=== PATIENT | female | born 1980 | race Caucasian/White ===

== ENCOUNTER 2024-01-02 09:03 | Outpatient (AMB) | payer OTHER, SELFPAY ==
--- NOTE | 2024-01-02 09:22 | A.OFFPC_ITS ---
Vital Signs 01/02/24 09:23 Height 6 ft Weight 174 lb 8 oz BMI 23.7 BP 93/50 L Blood Pressure Location Lt brachial Position Sitting Respiration 14 Pulse 66 Pulse Source Pulse Oximeter Temp 97.6 F Temp Source Temporal Artery Scan Pulse Oximetry (%) 99 Oxygen Delivery Method Room Air Intake Visit Reasons: est care Intake Note: Patient states that she started hormone treatment with transdermal patch for perimenopause and would like to try alternative due to patched leaving eczema wherever she places it. Tack Welder Required: No Accompanied by: Self / Same As Patient Allergies Seasonal Allergies Allergy (Intermediate, Verified 01/02/24 09:48) Itchy Eyes Penicillins Adverse Reaction (Severe, Verified 01/02/24 09:48) Anaphylaxis Medication List - Last Reconciled 01/02/24 by ELENO Church-BC estradiol (Evonne) 1 patch transdermal 2XW progesterone micronized 200 mg orally; for 12 days before expected period Tobacco use date assessed: 01/02/24 Dental Screening Dental Screen Date: 01/02/24 Did you have a dental visit in the last 12 months?: Yes Did you have a dental problem in the last 6 months where you did not have access to dental care?: No HPI HPI Comments History of Present Illness Details Becs 43-year-old female with perimenopause, e xercised induced asthma , seasonal allergies, PVCs, migraine headaches, generalized anxiety disorder, HPV s/p wisdom teeth extraction 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 brain aneurysm, Alzheimer MGF: age 95, OA PGM: age 92, anxious PGF: unknown Denies significant family hx in first degree relatives. Siblings - older full brother alive and well, younger half brother (paternal) alive and well Children - none Health Maintenance: Mammo 09/2023 reports WNL at [facility] Pap about 6 years ago. Tdap - will get today. 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 Sx include:insomnia, mood changes, anxious, brain fog, memory, exgreme fatigue, acne, hairloss All sx have improved w her current treatment PFSH Medical History (Updated 01/02/24 @ 10:41 by Ivette Land, ELENO-) Hypermobility of joint Anxiety Hives HPV (human papilloma virus) infection Migraines Exercise-induced asthma Surgical History (Updated 01/02/24 @ 09:40 by Amanda Beebe, [facility]) H/O oral surgery Family History (Updated 01/02/24 @ 10:34 by Henna Bedoya CMA) Mother Hypothyroid Asthma Father Tonsil cancer Maternal Grandmother High blood pressure Family/Other Asthma Brother No problems noted. Sister No problems noted. Maternal Grandmother No problems noted. 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 1. Little interest or pleasure in doing things: several days 2. Feeling down, depressed, or hopeless: several days 3. Trouble falling or staying asleep, or sleeping too much: several days 4. Feeling tired or having little energy: several days 5. Poor appetite or overeating: not at all 6. Feeling bad about yourself - or that you are a failure or have let yourself or your family down: not at all 7. Trouble concentrating on things, such as reading the newspaper or watching television: several days 8. Moving or speaking so slowly that other people could have noticed. Or the opposite - being so fidgety or restless that you have been moving around a lot more than usual: not at all 9. Thoughts that you would be better off or of hurting yourself in some way: not at all Total score: 5 Depression Screening Interpretation: Negative Depression Screening Done: Yes 50759 - PHQ-9 Billing: Yes Source: Developed by Drs. Salazar Davis, Saritha B.W. Jamin Lynch and colleagues, with an educational sherlyn from [employer]. Thrive Questionnaire Date Thrive assessed: 01/02/24 I am a: Patient What is your living situation today?: I have a steady place to live Within the past 12 months, did the food you bought not last and you didn't have the money to get more?: Never true Within the past 12 months, did you worry whether your food would run out before you got money to buy more?: Never true Do you have trouble paying for medicines?: No Do you have trouble getting transportation to medical appointments?: No Do you have trouble paying your heating and electricity bill?: No Do you have trouble taking care of your child, family member or friend?: No Do you have trouble with day-to-day activities such as bathing, preparing meals, shopping, managing finances, etc.?: No Are you currently unemployed and looking for a job?: No Are you interested in more education?: No Please select the resources that you would like help with: None Currently or been in a relationship where the following occur: no concerns reported THRIVE Score: 0 AUDIT C Alcohol Use Questionnaire (AUDIT-C) 1. How often do you have a drink containing alcohol?: Monthly or less 2. How many drinks containing alcohol do you have on a typical day when you are drinking?: 1 or 2 3. How often do you have six or more drinks on one occasion?: Never Total Score: 1 Score Reviewed/Action Taken: Yes ANGELINE-7 AMB Questionnaire ANGELINE-7 Date ANGELINE - 7 assessed: 01/02/24 Feeling nervous, anxious, or on edge: 2 = More than half the days Not being able to stop or control worryin = Several days Worrying too much about different things: 1 = Several days Trouble relaxin = More than half the days Being so restless that it is hard to sit still: 0 = Not at all Becoming easily annoyed or irritable: 1 = Several days Feeling afraid as if something awful might happen: 2 = More than half the days Total ANGELINE-7 score (0-4 normal; 5-9 mild; 10-14 moderate; 15-21 severe): 9 Source: Developed by Drs. Salazar Davis, Jamin Choudhary and colleagues, with an educational sherlyn from [employer]. ANGELINE-7 Assessment Billing ANGELINE-7 Assessment Tool: ANGELINE-7 Assessment 78618 ACT Questionnaire In the past 4 weeks, how much of the time did your asthma keep you from getting as much done at work, school or at home?: None of the time During the past 4 weeks, how often have you had shortness of breath?: Not at all During the past 4 weeks, how often did your asthma symptoms wake you up at night or earlier than usual in the morning?: Not at all During the past 4 weeks, how often have you had to use your rescue inhaler or nebulizer medication?: Not at all How would you rate your asthma control during the past 4 weeks?: Completely controlled ACT Interpretation: Negative Score: 25 Review of Systems Const Details: CONSTITUTIONAL: DENIES FEVER. SKIN: DENIES RASH. EYE: DENIES EYE PAIN. ENMT: DENIES SORE THROAT AND NASAL CONGESTION. RESPIRATORY: DENIES SHORTNESS OF BREATH AND COUGH. GASTROINTESTINAL: DENIES NAUSEA, VOMITING OR ABDOMINAL PAIN. CARDIOVASCULAR: DENIES CHEST PAIN AND SYNCOPE. GENITOURINARY: DENIES DYSURIA. MUSCULOSKELETAL: DENIES BACK PAIN AND EXTREMITY PAIN. NEUROLOGIC: DENIES HEADACHES, CONFUSION, AND WEAKNESS. PSYCHIATRIC: DENIES SUICIDAL THOUGHTS AND SUBSTANCE ABUSE. ALLERGY/ IMMUNOLOGIC: DENIES IMPAIRED IMMUNITY. Physical exam (Primary Care) Vital Signs: Last Vital Signs Temp 97.6 F 01/02/24 09:23 Pulse 66 01/02/24 09:23 Resp 14 01/02/24 09:23 BP 93/50 L 01/02/24 09:23 Pulse Ox 99 01/02/24 09:23 Oxygen Delivery Method Room Air 01/02/24 09:23 BMI result Body Mass Index 23.7 Tobacco/Smoking Status: Tobacco use Status Tobacco use date assessed 01/02/24 01/02/24 09:44 Patient Tobacco Use Status Former Tobacco user 01/02/24 09:44 e-Cigarette/Vaping Use Never Used 01/02/24 09:44 PHQ-9: PHQ-9 Score PHQ-9: Total score 5 01/02/24 09:44 Depression Screening Interpretation: Negative Thrive Assessment: Date of Thrive Assessment Date Thrive assessed 01/02/24 01/02/24 09:44 Currently or been in a relationship where the following occur: no concerns reported Const Other: General: Well developed, well nourished, in no acute distress. Appears stated age. Head: Normocephalic, atraumatic. Eyes: Pupils are equal, round and reactive to light and accommodation. Conjunctivae are clear. Vision grossly normal. Ears: TMs clear AU, EACS WNL Nose: Patent, without discharge. Mouth: There are no ulcers or lesions noted. No inflammation, no post nasal drip, no plaques nor exudates. Neck: Supple, no adenopathy or thyromegaly. Lungs: Clear to auscultation bilaterally. No rales, rhonchi or wheeze noted. Good air flow in all roach. Heart: Regular rate, frequent PVCs noted No murmurs, click, rubs or gallops are noted. Abdomen: Bowel sounds present in all quadrants. The abdomen is soft, nontender, with no masses or organomegaly noted. No hernias are noted. Musculoskeletal: Joints are nontender, without swelling, redness, or effusions. Range of motion is observed to be normal. Pulses: Peripheral pulses are equal and palpable bilaterally. Extremities: No clubbing, cyanosis nor edema is noted. Neurologic: Gait and station normal. Cranial Nerves 2-12 intact. Motor strength grossly symmetrical and intact. No sensory loss. Balance normal. Skin: No rashes, ulcers, or lesions noted. Turgor is good. Skin color is good. Hair and nails are without abnormalities. Psych: Normal eye contact, affect and mood appropriate, and normal interactions. Patient is alert and appropriate to context. Extremities: No clubbing, cyanosis or edema. Office Procedures EKG Details: SINUS ARRHYTHMIA W FREQUENT PVC 76848-[id number], Complete Assessment and Plan Assessment & Plan (1) Encounter for general adult medical examination with abnormal findings: Code(s): Z00.01 - Encounter for general adult medical examination with abnormal findings (2) Cervical cancer screening: Comment: Refer to rn gynecology for Pap smear Code(s): Z12.4 - Encounter for screening for malignant neoplasm of cervix (3) Perimenopause: Comment: Refer to rn gynecology for further management Code(s): N95.1 - Menopausal and female climacteric states (4) Frequent PVCs: Comment: Noted on EKG today. Patient reports several years ago being worked up for the same. She has never had a Holter monitor. She denies any symptoms. Offered to order a Holter monitor today. She will think about it and get back to me. Code(s): I49.3 - Ventricular premature depolarization (5) Mild intermittent asthma: Comment: P.r.n. use of Tamara only. Refill sent in today. Code(s): J45.20 - Mild intermittent asthma, uncomplicated Qualifiers: Asthma complication type: uncomplicated Qualified Code(s): J45.20 - Mild intermittent asthma, uncomplicated (6) HPV in female: Comment: Refer to rn gynecology Code(s): B97.7 - Papillomavirus as the cause of diseases classified elsewhere (7) Generalized anxiety disorder: Comment: Does not feel like she needs medications. 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 Code(s): F41.1 - Generalized anxiety disorder Orders: Orders Lipid Panel Today Z00.00 - Encounter for general adult medical examination without abnormal findings Microalbumin, Random (w Creat) Today Z00.00 - Encounter for general adult medical examination without abnormal findings IRON PROFILE Today Z00.00 - Encounter for general adult medical examination without abnormal findings Vitamin B12 and Folate Today Z00.00 - Encounter for general adult medical examination without abnormal findings AMB EKG-In Office Today N95.1 - Menopausal and female climacteric states, Z00.00 - Encounter for general adult medical examination without abnormal findings AMB EKG-In Office Today I49.3 - Ventricular premature depolarization, Z13.6 - Encounter for screening for cardiovascular disorders MM tomosynthesis screening BI Today Z12.31 - Encounter for screening mammogram for malignant neoplasm of breast Comprehensive [place]. Panel Fast Today Z00.00 - Encounter for general adult medical examination without abnormal findings Hemoglobin A1c Today Z00.00 - Encounter for general adult medical examination without abnormal findings TSH reflex Free T4 Today Z00.00 - Encounter for general adult medical examination without abnormal findings Vitamin D 1,25 dihydroxy Today Z00.00 - Encounter for general adult medical examination without abnormal findings Complete Blood Count no Diff Today Z00.00 - Encounter for general adult medical examination without abnormal findings Referrals MAIL OFFICER Referral N95.1 - Menopausal and female climacteric states, Z12.4 - Encounter for screening for malignant neoplasm of cervix Medications: New albuterol sulfate 90 mcg/actuation 2 puffs inhalation Q4-6H 30 days PRN 8.5 grams 0RF shortness of breath or wheezing Patient Instructions: Return to office in 1 year for complete physical exam, sooner as needed. Health screenings for women You should visit your health care provider from time to time, even if you are healthy. The purpose of these visits is to: Screen for medical issues Assess your risk for future medical problems Encourage a healthy lifestyle Update vaccinations and other preventive care services Help you get to know your provider in case of an illness Information Even if you feel fine, you should still see your provider for regular checkups. These visits can help you avoid problems in the future. For example, the only way to find out if you have high blood pressure is to have it checked regularly. High blood sugar and high cholesterol levels also may not have any symptoms in the early stages. A simple blood test can check for these conditions. There are specific times when you should see your provider or receive specific health screenings. The [place] Preventive Services Task Force publishes a list of recommended screenings. Below are screening guidelines for women ages 18 to 39. BLOOD PRESSURE SCREENING Your blood pressure should be checked at least once every 3 to 5 years if: Your blood pressure is in the normal range (top number less than 120 mm Hg and bottom number less than 80 mm Hg) You don't have risk factors for high blood pressure Ask your provider if you need your blood pressure checked more often if: The top number is 120 to 129 mm Hg or the bottom number is 70 to 79 mm Hg You have diabetes, heart disease, kidney problems, are overweight, or have certain other health conditions You have a first-degree relative with high blood pressure You are Black You had high blood pressure during a If the top number is 130 mm Hg or greater or the bottom number is 80 mm Hg or greater, this is considered stage 1 hypertension. Schedule an appointment with your provider to learn how you can reduce your blood pressure. Watch for blood pressure screenings in your area. Ask your provider if you can stop in to have your blood pressure checked. BREAST CANCER SCREENING Experts do not agree about the benefits of breast self-exams in finding breast cancer or saving lives. Talk to your provider about what is best for you. A screening mammogram is not recommended for most women under age 40. Your provider may discuss and recommend mammograms, MRI scans, or ultrasounds if you have an increased risk for breast cancer, such as: A mother or sister who had breast cancer at a young age (most often starting screening earlier than the age the close relative was diagnosed) You carry a high-risk genetic marker CERVICAL CANCER SCREENING Cervical cancer screening should start at age 21 years unless your provider advises otherwise. After the first test: Women ages 21 through 29 should have a Pap test every 3 years. Exoprts do not agree on whether HPV testing is recommended for this age group. Women ages 30 through 65 should be screened with either a Pap test every 3 years or the HPV test every 5 years or both tests every 5 years (called cotesting ). Women who have been treated for precancer (cervical dysplasia) should continue to have Pap tests for 20 years after treatment or until age 65, whichever is longer. If you have had your uterus and cervix removed (total hysterectomy), and you have not been diagnosed with cervical cancer or precancer (high grade cervical neoplasia), you do not need cervical cancer screening. CHOLESTEROL SCREENING Cholesterol screening should begin at: Age 45 for women with no known risk factors for coronary heart disease Age 20 for women with known risk factors for coronary heart disease Repeat cholesterol screening should take place: Every 5 years for women with normal cholesterol levels More often if changes occur in lifestyle (including weight gain and diet) More often if you have diabetes, heart disease, kidney problems, or certain other conditions DIABETES SCREENING You should be screened for diabetes starting at age 35 and then repeated every 3 years if you have no risk factors for diabetes. Screening may need to start earlier and be repeated more often if you have other risk factors for diabetes, such as: You have a first degree relative with diabetes. You are overweight or have obesity. You have high blood pressure, prediabetes, or a history of heart disease. Screening for diabetes should be done if you are planning to become and you are overweight and have other risk factors such as high blood pressure. DENTAL EXAM Go to the dentist once or twice every year for an exam and cleaning. Your dentist will evaluate if you need more frequent visits. EYE EXAM Have an eye exam every 5 to 10 years before age 40. If you have vision problems, have an eye exam every 2 years or more often if recommended by your provider. You should have an eye exam that includes an examination of your retina (back of your eye) at least every year if you have diabetes. IMMUNIZATIONS Commonly needed vaccines include: Flu shot: get one every year. COVID-19 vaccine: ask your provider what is best for you. Tetanus-diphtheria and acellular pertussis (Tdap) vaccine: have one at or after age 19 as one of your tetanus-diphtheria vaccines if you did not receive it as an adolescent. Tetanus-diphtheria: have a booster (or Tdap) every 10 years. Varicella vaccine: receive 2 doses if you never had chickenpox or the varicella vaccine. Hepatitis B vaccine: receive 2, 3, or 4 doses, depending on your exact circumstances. Measles, mumps, and rubella (MMR) vaccine: receive 1 to 2 doses if you are not already immune to MMR. Your provider can tell you if you are immune. Ask your provider about the human papillomavirus (HPV) vaccine if: You have not received the HPV vaccine in the past You have not completed the full vaccine series (you should catch up on this shot) Ask your provider if you should receive other immunizations if you have certain health problems that increase your risk for some diseases such as pneumonia. INFECTIOUS DISEASE SCREENING Women who are sexually active should be screened for chlamydia and gonorrhea up until age 25. Women 25 years and older should be screened for chlamydia and gonorrhea if at high risk. Screening for hepatitis C: All adults ages 18 to 79 should get a one-time test for hepatitis C. people should be screened at every . Screening for human immunodeficiency virus (HIV): All people ages 15 to 65 should get a one-time test for HIV. Depending on your lifestyle and medical history, you may also need to be screened for infections such as syphilis and HIV, as well as other infections. PHYSICAL EXAM All adults should visit their provider from time to time, even if they are healthy. The purpose of these visits is to: Screen for disease Assess your risk of future medical problems Encourage a healthy lifestyle Update your vaccinations and other preventive care services Maintain a relationship with a provider in case of an illness Your height, weight, and BMI should be checked at every exam. During your exam, your provider may ask you about: Depression and anxiety Diet and exercise Alcohol and tobacco use Safety issues, such as using seat belts, smoke detectors, and intimate partner violence Your medicines and risk for interactions SKIN SELF-EXAM Your provider may check your skin for signs of skin cancer, especially if you're at high risk, such as if you: Have had skin cancer before Have close relatives with skin cancer Have a weakened immune system OTHER SCREENING Talk with your provider about colon cancer screening if you have a strong family history of colon cancer or polyps, or if you have had inflammatory bowel disease or polyps yourself. Routine bone density screening of women under 40 is not recommended. Coding Level of Care Code Complex EM visit Add On G2211 Diagnoses Encounter for general adult medical examination with abnormal findings Z00.01 Cervical cancer screening Z12.4 Perimenopause N95.1 Frequent PVCs I49.3 Mild intermittent asthma without complication J45.20 Asthma complication type: uncomplicated HPV in female B97.7 Generalized anxiety disorder F41.1 CPT Codes EKG - CPT: 76314-[id number], Complete ([id number]) Additional Codes ANGELINE-7 Assessment Billing - ANGELINE-7 Assessment Tool: ANGELINE-7 Assessment 33016 ([id number])
[2024-01-02 09:23] VITALS: BP 93/50; PULSE 66; RESP 14; TEMP 36.4; O2SAT 99; BMI 23.7
== END 2024-01-02 10:36 | disposition home or self-care (01) ==
PROVIDERS: Visit Provider Nurse Practitioner Family
DX: Z00.00 Encounter for general adult medical examination without abnormal findings (principal); N95.1 Menopausal and female climacteric states; I49.3 Ventricular premature depolarization; J45.20 Mild intermittent asthma, uncomplicated; B97.7 Papillomavirus as the cause of diseases classified elsewhere; F41.1 Generalized anxiety disorder
CPT/HCPCS: 93000; 99386

== ENCOUNTER 2024-01-02 10:38 | Outpatient (REF) | payer OTHER, SELFPAY ==
[2024-01-02 14:42] LABS: Hematocrit 40.8 % (37.0-47.0); Hemoglobin 13.6 g/dl (12.0-16.0); Mean Corpuscular HGB Conc 33.3 g/dl (31.0-35.0); Mean Corpuscular Hemoglobin 29.1 pg (27.0-33.0); Mean Corpuscular Volume 87.4 fL (80.0-98.0); Mean Platelet Volume 10.6 fL (9.4-12.3); Platelet Count 247 X10*3/uL (160-400); Red Blood Count 4.67 X10*6/uL (4.20-5.50); Red Cell Distribution Width 12.4 % (11.0-16.0); White Blood Count 6.1 X10*3/uL (4.8-10.8)
[2024-01-02 14:48] LABS: Estimated Average Glucose 97 mg/dL
[2024-01-02 15:17] LABS: Alanine Aminotransferase 9 U/L (0-31); Albumin Level 4.6 g/dL (3.5-5.0); Alkaline Phosphatase 42 U/L (39-117); Anion Gap 13 (12-20); Aspartate Amino Transferase 13 U/L (5-31); Bilirubin Total 0.8 mg/dL (0.0-1.0); Blood Urea Nitrogen 13 mg/dL (9-16); Calcium 9.4 mg/dL (8.4-10.2); Carbon Dioxide 24 mmol/L (22-29); Chloride 107 mmol/L (96-108); Cholesterol 168 mg/dL (<200); Estimated Glomerular Filt Rate > 60; Glucose Fasting 90 mg/dL (60-99); HDL Cholesterol 58 mg/dL (>40); Iron 109 mcg/dL (30-160); LDL Cholesterol Calculated 100 mg/dL (<100); Percent Iron Saturation 34 % (15-50); Sodium 140 mmol/L (135-145); Total Iron Binding Capacity 320 mcg/dL (228-428); Total Protein 7.6 g/dL (6.5-8.0); Triglycerides 50 mg/dL (<150); Unsaturated Iron Binding 211 ug/dL
[2024-01-02 15:36] LABS: TSH reflex Free T4 1.16 uIU/mL (0.32-4.0)
[2024-01-02 15:45] LABS: Folate 8.6 ng/mL (> or = 4.0); Vitamin B12 314 pg/mL (200-900)
[2024-01-08 14:58] LABS: VITAMIN D (1,25 OH) D3 51 pg/mL; Vit D (1,25-Dihydroxy) Total 51 pg/mL (18-72); Vitamin D (1,25 OH) D2 <8 pg/mL
== END 2024-01-02 10:39 | disposition home or self-care (01) ==
LOC: HO.WFDLDS 10:38
PROVIDERS: Visit Provider Nurse Practitioner Family
DX: Z00.00 Encounter for general adult medical examination without abnormal findings (principal)
CPT/HCPCS: 36415; 80053; 80061; 82043; 82570; 82607; 82652; 82746; 83036; 83540; 84443; 85027

== ENCOUNTER → 2024-03-11 09:54 | Outpatient (REF) | payer OTHER, SELFPAY ==
--- NOTE | 2024-03-11 09:56 | HM_ITS ---
Conclusion: 1. Patient was monitored for total period of 3 days 2. Baseline was normal sinus rhythm with average heart of 83 beats per minute 3. Frequent PVCs noted with total burden of 33% with no sustained ventricular arrhythmias 4. No pauses noted 5. Patient did not report any symptoms MTDD
== END ==
LOC: HO.CARD 09:54
PROVIDERS: PCP Nurse Practitioner Family; Visit Provider Nurse Practitioner Family
DX: I49.3 Ventricular premature depolarization (principal)
CPT/HCPCS: 93242

== ENCOUNTER → 2024-03-11 09:56 | Outpatient (BNV) | payer OTHER, SELFPAY | PROVIDERS: PCP Nurse Practitioner Family; Visit Provider Internal Medicine Cardiovascular Disease | DX: I49.3 Ventricular premature depolarization (principal) | CPT/HCPCS: 93244 ==

== ENCOUNTER 2024-03-26 12:22 | Outpatient (AMB) | payer OTHER, SELFPAY ==
--- NOTE | 2024-03-26 12:25 | A.OFFPC_ITS ---
Vital Signs 03/26/24 12:27 Height 6 ft Weight 178 lb BMI 24.1 BP 90/64 Blood Pressure Location Rt brachial Position Sitting Pulse 62 Pulse Source Pulse Oximeter Pulse Oximetry (%) 97 Oxygen Delivery Method Room Air Intake Visit Reasons: F/U Holter monitor Intake Note: Patient here to follow up after having Holter monitor for 48hrs Allergies Seasonal Allergies Allergy (Intermediate, Verified 03/26/24 12:28) Itchy Eyes Penicillins Adverse Reaction (Severe, Verified 03/26/24 12:28) Anaphylaxis Medication List - Last Reconciled 03/26/24 by Ivette Land, BELL PERSON- albuterol sulfate 90 mcg/actuation 2 puffs inhalation Q4-6H PRN 30 days estradiol (Evonne) 1 patch transdermal 2XW progesterone micronized 200 mg orally; for 12 days before expected period Tobacco use date assessed: 01/02/24 Dental Screening Dental Screen Date: 01/02/24 HPI HPI Comments History of Present Illness Details Becs 43-year-old female with perimenopause, e xercised induced asthma , seasonal allergies, PVCs, migraine headaches, generalized anxiety disorder, HPV s/p wisdom teeth extraction Here today with partner Tj, to review her Holter monitor which was done to evaluate PVCs that were noted during physical exam. The Holter monitor results were reviewed with her today. She reports that during the 3 days she had the Holter monitor on she was not under any stress, she reports that she has more PVCs when she does have stress. She was not working while she had the Holter monitor on. Be that as it may, she did have 1 episode of being startled in the middle of the night by her child. She states that when she does have the palpitations that she is aware of, she feels like she is dropping on a roller coaster like she is unable to catch her breath. This is short-lived. She denies any chest pain, syncope, swelling in her legs. She is able to work out without any ill effects. Discussed the next step which would include referral to Cardiology or checking an echocardiogram. She wishes to follow up with Cardiology. A referral will be placed today to [facility]. I would like to check her magnesium and phosphorus however she declined to have labs checked today as she would like to defer to Cards She also wonders if the PVCs have anything to do with perimenopause. She is seeing third rigger in 2 weeks. I have advised her to follow up with them in regards to this question. Exam: Awake alert oriented, no acute distress Frequent PVC, stopped w valsalva No edema BLE Plan: refer to cards for further eval and tx encouraged to use Valsalva maneuver PRN Okay to continue exercise Edu on reasons to seek add'l care. Return to office as scheduled for complete physical exam, sooner as needed. This note is constructed using voice recognition software. While every effort has been made to ensure accuracy in freight car inspector, still errors may have been included Sometimes, these errors may affect the content or meaning of the given sentence . Total time spent caring for the patient today was 30 minutes. This includes time spent before the visit reviewing the chart, time spent during the visit, and time spent after the visit on documentation [place] [id number] Holter Monitor Report Signed Patient: Megan Neves MR#: [id number] : 1980 Acct:[id number] Age/Sex: 43 / F ADM Date: 03/11/24 Loc: [facility] Attending Dr: Ivette ROSS Ordering Physician: Ivette Land Date of Service: 03/11/24 Procedure(s): ECG 3 day holter monitor Accession Number(s): cc: Ivette Land~ Conclusion: 1. Patient was monitored for total perio d of 3 days 2. Baseline was normal sinus rhythm with average heart of 83 beats per minute 3. Frequent PVCs noted with total burden of 33% with no sustained ventricular arrhythmias 4. No pauses noted 5. Patient did not report any symptoms Dictated By: Carroll Toro MD Signed By: <Electronically signed by Carroll Toro MD> 03/17/24 1215 [facility] Medical History Hypermobility of joint Anxiety Hives HPV (human papilloma virus) infection Migraines Exercise-induced asthma Surgical History H/O oral surgery Family History (Updated 01/02/24 @ 10:34 by Henna Bedoya CMA) Mother Hypothyroid Asthma Father Tonsil cancer Maternal Grandmother High blood pressure Family/Other Asthma Brother No problems noted. Sister No problems noted. Maternal Grandmother No problems noted. 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 Salazar Davis, Saritha Lynch, Jamin Mendoza and colleagues, with an educational sherlyn from [employer]. Physical exam (Primary Care) Vital Signs: Last Vital Signs Pulse 62 03/26/24 12:27 BP 90/64 03/26/24 12:27 Pulse Ox 97 03/26/24 12:27 Oxygen Delivery Method Room Air 03/26/24 12:27 BMI result Body Mass Index 24.1 Tobacco/Smoking Status: Tobacco use Status Tobacco use date assessed 01/02/24 03/26/24 12:27 Patient Tobacco Use Status Former Tobacco user 03/26/24 12:27 e-Cigarette/Vaping Use Never Used 03/26/24 12:27 Thrive Assessment: Date of Thrive Assessment Date Thrive assessed 01/02/24 03/26/24 12:27 Assessment and Plan Assessment & Plan (1) Frequent PVCs: Comment: Noted on EKG today. Patient reports several years ago being worked up for the same. She has never had a Holter monitor. She denies any symptoms. Offered to order a Holter monitor today. She will think about it and get back to me. Code(s): I49.3 - Ventricular premature depolarization Orders: Referrals Cardiology Referral I49.3 - Ventricular premature depolarization Coding Level of Care Code Est Pt Level 4 (30741) Diagnoses Frequent PVCs I49.3
[2024-03-26 12:27] VITALS: BP 90/64; PULSE 62; O2SAT 97; BMI 24.1
== END 2024-03-26 13:00 | disposition home or self-care (01) ==
PROVIDERS: PCP Nurse Practitioner Family; Visit Provider Nurse Practitioner Family
DX: I49.3 Ventricular premature depolarization (principal)
CPT/HCPCS: 99214

== ENCOUNTER 2024-04-08 09:26 | Outpatient (REF) | payer OTHER, SELFPAY ==
[2024-04-12 20:13] LABS: HPV mRNA E6/E7 Not Detected (Not Detected)
== END 2024-04-08 09:27 | disposition home or self-care (01) ==
LOC: HO.LNP 09:26
PROVIDERS: PCP Nurse Practitioner Family; Visit Provider Advanced Practice Midwife
DX: Z01.419 Encounter for gynecological examination (general) (routine) without abnormal findings (principal); Z12.4 Encounter for screening for malignant neoplasm of cervix; N95.1 Menopausal and female climacteric states; I49.3 Ventricular premature depolarization; Z11.3 Encounter for screening for infections with a predominantly sexual mode of transmission; Z86.19 Personal history of other infectious and parasitic diseases; B97.7 Papillomavirus as the cause of diseases classified elsewhere; Z12.39 Encounter for other screening for malignant neoplasm of breast
CPT/HCPCS: 87624; 88175; 99386

== ENCOUNTER 2024-04-08 09:26 | Outpatient (AMB) | payer OTHER, SELFPAY ==
--- NOTE | 2024-04-08 09:29 | A.OFFVIS_ITS ---
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 Ref Oil Painter Required: No Information Interpreted: clinical only Sde: Sde Present Allergies Seasonal Allergies Allergy (Intermediate, Verified 04/08/24 09:36) Itchy Eyes Penicillins Adverse Reaction (Severe, Verified 04/08/24 09:36) Anaphylaxis Medication List - Last Reconciled 04/08/24 by Anel Barraza CNM albuterol sulfate 90 mcg/actuation 2 puffs inhalation Q4-6H PRN 30 days estradiol (Evonne) 1 patch transdermal 2XW progesterone micronized 200 mg orally; for 12 days before expected period Is last menstrual period known: Yes Last menstrual period: 03/22/24 HPI HPI 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 She recently moved to the area in the last year and has been establishing care she recently met with her PCP a couple of times she is awaiting more of an evaluation for PVCs that she has been experiencing she had a Holter monitor and she is awaiting a cardiac consultation.. Her father has AFib unresponsive to treatment so this is a concern for her.. She says a couple of years ago she started experiencing symptoms such as increased acne a little bit of weight gain and sleep disturbances that after doing her research she felt might be related to erendira menopausal symptoms and so she sought out treatment with HRT and establish care with an online site and has been prescribed an estrogen patch and progesterone for 12 days a month. She has been using this and she feels it has been improving her symptoms. She says she gets regular mammograms and had her most recent 1 in the spring at [facility]. She says she gets regular periods. She is sexually active with a partner for the last couple of years she says she was screened out of a concern for just good practice in the spring and was negative for gonorrhea chlamydia trichomoniasis and other STIs. 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 She is very aware of the symptoms and she declines any need for p.r.n. Valtrex at this time.. She is actively awaiting the cardiac consultation. She was hoping to have more of a discussion about management of the HRT as the patches have been contributing to an eczematous reaction which she is managing. [facility] Medical History Hypermobility of joint Anxiety Hives HPV (human papilloma virus) infection Migraines Exercise-induced asthma Surgical History H/O oral surgery Family History Mother Hypothyroid Asthma Father Tonsil cancer Maternal Grandmother High blood pressure Family/Other Asthma Brother No problems noted. Sister No problems noted. Maternal Grandmother No problems noted. 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 Cognitive needs: No Hearing needs: No Vision needs: Yes Female Reproductive History Menstrual Age of Menarche: 14 Duration of menses: 6-7 days Date of last menstrual period: 03/22/24 control method: none Total pregnancies: 0 Date of last pap smear: 09/23/19 (negative,per pt.) History of abnormal pap smear: No Date of Mammogram: 10/14/23 (neg.) Physical Exam Vital Signs: Last Vital Signs BP 110/68 04/08/24 09:35 BMI result Body Mass Index 24.4 Const General: healthy appearing, comfortable, no acute distress, well developed and alert Nutritional Appearance: average body habitus Orientation/consciousness: patient oriented x3 Limitations: no limitations HEENT Head: Yes normocephalic Neck Neck: Yes normal visual inspection Chest Chest palpation & inspection: normal inspection of the chest Breast/axilla inspection: normal inspection of the breasts and normal inspection of the axillae Breast/axilla palpation: normal palpation of the breasts and normal palpation of the axillae Resp Effort & Inspection: normal respiratory effort GI Inspection: Yes normal to inspection, No Abdominal wall edema and No distended Palpation (GI): Soft to palpation and nontender Other: Normal external exam no lesions at all vagina pink and moist cervix nulliparous pink moist appears consistent with recent ovulation long close thick mobile nontender uterus midposition mobile nontender adnexa not enlarged nontender good tone with Kegel. General: Yes bladder normal to palpation External Female Exam: normal external appearance and normal appearance of the urethra Speculum Exam - Vagina: normal appearance of the vagina, normal palpation and normal vaginal discharge Speculum Exam - Cervix: normal appearance of the cervix, normal palpation and nontender Bimanual exam- vagina & uterus: normal bimanual exam, normal palpation, uterine size normal, bladder normal to palpation, consistency normal, normal palpation, uterine mobility normal, uterine shape normal, No Cervical tenderness present, non-tender and no cervical motion tenderness Bimanual Exam- Adnexa, other: normal adnexae, no masses, normal and No adnexal tenderness Neuro General: patient oriented x3 Assessment & Plan Assessment & Plan (1) Cervical cancer screening: Comment: Refer to astronaut mission specialist for Pap smear; 04/08/2024 Pap with HPV testing done... Code(s): Z12.4 - Encounter for screening for malignant neoplasm of cervix Category: Medical (2) Perimenopause: Comment: Refer to astronaut mission specialist for further management Code(s): N95.1 - Menopausal and female climacteric states Category: Medical (3) Frequent PVCs: Comment: Noted on EKG today. Patient reports several years ago being worked up for the same. She has never had a Holter monitor. She denies any symptoms. Offered to order a Holter monitor today. She will think about it and get back to me. Code(s): I49.3 - Ventricular premature depolarization Category: Medical (4) Well woman exam with routine gynecological exam: Code(s): Z01.419 - Encounter for gynecological examination (general) (routine) without abnormal findings Category: Medical (5) Encounter for screening examination for sexually transmitted disease: Code(s): Z11.3 - Encounter for screening for infections with a predominantly sexual mode of transmission Category: Medical (6) History of JENNI positive for HSV: Comment: pt states she tested pos for hsv 1 & 2 antibodies 2 yrs ago, has never ever had an outbreak. Code(s): Z86.19 - Personal history of other infectious and parasitic diseases Category: Medical (7) Hormone replacement therapy (HRT): Comment: Is on HRT prescribed by other providers. I shared that I am not comfortable managing HRT, so she should seek other provider input.. Code(s): Z79.890 - Hormone replacement therapy Category: Medical (8) HPV in female: Comment: Refer to astronaut mission specialist; 04/08/2024 patient states she has a history of positive HSV antibodies 1 &2, no history than outbreak. States she has never had an abnormal Pap, Pap with Co testing done today. Code(s): B97.7 - Papillomavirus as the cause of diseases classified elsewhere Category: Medical (9) Breast cancer screening: Comment: Gets regular mammograms says her most recent negative mammogram was this spring 2023 at [facility]. 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 She recently moved to the area in the last year and has been establishing care she recently met with her PCP a couple of times she is awaiting more of an evaluation for PVCs that she has been expe riencing she had a Holter monitor and she is awaiting a cardiac consultation.. Her father has AFib unresponsive to treatment so this is a concern for her.. She says a couple of years ago she started experiencing symptoms such as increased acne a little bit of weight gain and sleep disturbances that after doing her research she felt might be related to erendira menopausal symptoms and so she sought out treatment with HRT and establish care with an online site and has been prescribed an estrogen patch and progesterone for 12 days a month. She has been using this and she feels it has been improving her symptoms. She says she gets regular mammograms and had her most recent 1 in the spring at [facility]. She says she gets regular periods. She is sexually active with a partner for the last couple of years she says she was screened out of a concern for just good practice in the spring and was negative for gonorrhea chlamydia trichomoniasis and other STIs. 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 She is very aware of the symptoms and she declines any need for p.r.n. Valtrex at this time.. She is actively awaiting the cardiac consultation. She was hoping to have more of a discussion about management of the HRT as the patches have been contributing to an eczematous reaction which she is managing. She is open to if it happens I suggested multivitamins. I shared that I am not comfortable managing HRT and it is not currently something I am comfortable with. She may want to seek out advice a dimension quarry supervisor either in our system or others for other input if she feels she needs it. I also suggested she have a conversation with the cardiology team about it as well. Orders: Orders PAP + HPV E6/E7 rfx 18/45 Today Z01.419 - Encounter for gynecological examination (general) (routine) without abnormal findings Coding Level of Care Code New Pt Prev Care 40-64y(85749) Diagnoses Cervical cancer screening Z12.4 Perimenopause N95.1 Frequent PVCs I49.3 Well woman exam with routine gynecological exam Z01.419 Encounter for screening examination for sexually transmitted disease Z11.3 History of JENNI positive for HSV Z86.19 Hormone replacement therapy (HRT) Z79.890 HPV in female B97.7 Breast cancer screening Z12.39
[2024-04-08 09:35] VITALS: BP 110/68; BMI 24.4
== END 2024-04-08 10:24 | disposition home or self-care (01) ==
LOC: HO.HWSM 09:26
PROVIDERS: PCP Nurse Practitioner Family; Visit Provider Advanced Practice Midwife
DX: Z01.419 Encounter for gynecological examination (general) (routine) without abnormal findings (principal); N95.1 Menopausal and female climacteric states; I49.3 Ventricular premature depolarization
CPT/HCPCS: 99386

== ENCOUNTER 2024-04-14 10:50 | Outpatient (AMB) | payer OTHER, SELFPAY ==
[2024-04-14 10:53] VITALS: BP 96/60; PULSE 71; BMI 24.0
--- NOTE | 2024-04-14 10:53 | A.OFFVIS_ITS ---
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 PCP had done a basic workup with Holter had shown frequent PVCs and hence she is referred here. Patient believes she might have had some arrhythmias many years ago but again extremely vague and never had a detailed workup. Never had an echocardiogram. She is quite tall and marfanoid habitus. When I went into family history, she states that her brother actually has Marfan syndrome and is in his 40s at this time. However, she is not aware of what issues he actually has. Patient herself has never been identified with cardiac issues. She has also never been diagnosed as Marfan's. She is fairly active without any limitations. Some palpitations but nothing profound. No other cardiac symptoms. [facility] Medical History Hypermobility of joint Anxiety Hives HPV (human papilloma virus) infection Migraines Exercise-induced asthma Surgical History H/O oral surgery Family History (Updated 04/14/24 @ 11:17 by Parmjit Swartz MD) Mother Hypothyroid Asthma Father Tonsil cancer Maternal Grandmother High blood pressure Family/Other Asthma Brother Marfan syndrome Sister No problems noted. Maternal Grandmother No problems noted. 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 Cognitive needs: No Hearing needs: No Vision needs: Yes Female Reproductive History Menstrual Age of Menarche: 14 Review of Systems Const Denies chills, Denies daytime sleepiness, Denies fatigue, Denies fever(s), Denies poor appetite, Denies snoring, Denies stops breathing during sleep, Denies weakness, Denies weight gain and Denies weight loss Eyes Denies loss of vision ENT Denies dizziness and Denies hearing loss Card Denies chest pain, Denies irregular heart rhythm, Denies claudication, Denies leg edema, Denies lightheadedness, Reports palpitations, Denies dyspnea on exertion and Denies orthopnea Resp Denies cough, Denies excessive phlegm production, Denies dyspnea on exertion, Denies snoring and Denies wheezing GI Denies abdominal pain, Denies hematochezia, Denies change in bowel habits, Denie s nausea and Denies vomiting Denies urinary frequency and Denies dysuria Musc Denies arthralgias, Denies muscle weakness, Denies numbness and Denies other Skin/Breast Denies nail changes and Denies rash Neuro Denies Abnormal speech present, Denies dizziness, Denies loss of vision, Denies memory loss, Denies numbness and Denies weakness Psych Denies depression and Denies memory loss Endo Denies fatigue and Reports palpitations Toro/Lymph Denies easy bruising Aller/Immun Denies wheezing Physical Exam Vital Signs: Last Vital Signs Pulse 71 04/14/24 10:53 BP 96/60 04/14/24 10:53 BMI result Body Mass Index 24.0 Const General: comfortable and no acute distress Orientation/consciousness: patient oriented x3 HEENT Other: ? High-arched palate Head: Yes normal to inspection Neck Neck: Yes normal visual inspection Chest Chest palpation & inspection: normal inspection of the chest Resp Auscultation: clear to auscultation bilaterally Cardio Palpation: normal PMI Heart sounds: S1 normal heart sound present, S2 normal heart sound present, no gallops, no murmurs and no rubs GI Palpation (GI): Soft to palpation Back/Spine/Pelvis Other: unremarkable Skin General skin exam: no rashes or lesions noted Neuro General: patient oriented x3 Speech: No Abnormal speech present Extrem Other: Hypermobile joints General: Yes normal to inspection Psych Mental Status: mental status grossly normal Office Procedures EKG Details: EKG with underlying sinus rhythm at 71/Min; PVCs; [place]. [id number], Complete Assessment & Plan Assessment & Plan (1) PVC (premature ventricular contraction): Code(s): I49.3 - Ventricular premature depolarization Category: Medical (2) Marfan syndrome: Code(s): Q87.40 - Marfan syndrome, unspecified Category: Medical Plan Overall, marfanoid habitus with hypermobile joints, scoliosis, brother with Marfan. Suspect patient also has Marfan syndrome. We will start with an echocardiogram for cardiac function. We will also get a chest and abdomen CT with contrast for assessment of aortic aneurysm. With regard to the PVCs, she has frequent PVCs on Holter with a burden of 33%. Unifocal. We will await the testing as above. Then possibly cardiac MRI/EP consultation. She is not suitable for any medications like beta-blockers or calcium channel blockers as she has low blood pressure. Hold of antiarrhythmics at this time. Discussed with significant other. Orders: Orders Basic Metabolic Panel Today I49.3 - Ventricular premature depolarization CT angio abdomen Today I71.9 - Aortic aneurysm of unspecified site, without rupture, Q87.40 - Marfan syndrome, unspecified CA echo transthoracic complete Today I49.3 - Ventricular premature depolarization, Q87.40 - Marfan syndrome, unspecified CT angio chest aorta Today I71.9 - Aortic aneurysm of unspecified site, without rupture, Q87.40 - Marfan syndrome, unspecified Coding Level of Care Code New Pt Level 4 (53991) Diagnoses PVC (premature ventricular contraction) I49.3 Marfan syndrome Q87.40 CPT Codes EKG - CPT: 21631-[id number], Complete ([id number])
== END 2024-04-14 11:28 | disposition home or self-care (01) ==
PROVIDERS: PCP Nurse Practitioner Family; Visit Provider Internal Medicine
DX: I49.3 Ventricular premature depolarization (principal); Q87.40 Marfan syndrome, unspecified
CPT/HCPCS: 93010; 99204

== ENCOUNTER → 2024-04-14 10:50 | Outpatient (BNVA) | payer OTHER, SELFPAY | PROVIDERS: PCP Nurse Practitioner Family; Visit Provider Internal Medicine | DX: I49.3 Ventricular premature depolarization (principal); Q87.40 Marfan syndrome, unspecified | CPT/HCPCS: 93005; 99202 ==

== ENCOUNTER → 2024-06-01 13:39 | Outpatient (REF) | payer OTHER, SELFPAY | LOC: HO.CARD 13:39 | PROVIDERS: PCP Nurse Practitioner Family; Visit Provider Internal Medicine | DX: Z13.89 Encounter for screening for other disorder (principal) ==

== ENCOUNTER → 2024-06-01 13:42 | Outpatient (BNV) | payer OTHER, SELFPAY | PROVIDERS: PCP Nurse Practitioner Family; Visit Provider Internal Medicine Cardiovascular Disease | DX: I71.21 Aneurysm of the ascending aorta, without rupture (principal) | CPT/HCPCS: 93306 ==

== ENCOUNTER 2024-06-03 07:38 | Outpatient (REF) | payer OTHER, SELFPAY ==
--- NOTE | 2024-06-01 13:42 | CA_ITS ---
Transthoracic Echocardiogram Patient (Last, First, Middle): Megan Neves, Gender: Female Date of : 1980 Age: 44 Procedure Date: 06/01/2024 Procedure Type: Transthoracic Echocardiogram Location: OP Height: 182.88 cm Weight: 79.38 kg BSA: 2.01 m2 Heart Rate: 75 bpm BP: 100 / 65 mmHg Design Cell Engineer: MARLEN Sanhcez MD: Parmjit Swartz MD Ssrs Developer: Carroll Toro MD Symptoms: I49.3 - Ventricular premature depolarization Study Quality: Adequate ECG Rhythm: NSR with PVCs Conclusions: - 1. Normal LV ejection fraction 55-60% 2. Normal cardiac valvular Doppler 3. Normal RV systolic pressure 4. Mildly dilated ascending aorta at 3.9 cm 5. No pericardial effusion Findings Left Ventricle Normal left ventricular size, thickness, and systolic function. The visually estimated ejection fraction is between 55-60%. Spectral Doppler is indicative of a normal filling pattern. Right Ventricle Normal right ventricular cavity size and systolic function. Atria Both atria are normal in size. There is no evidence of interatrial shunt. Aortic Valve Normal aortic valve structure and function. There is no aortic valve stenosis. There is no aortic valve regurgitation. Mitral Valve There is mild anterior mitral leaflet thickening. There is trace mitral valve regurgitation. There is no mitral valve stenosis. Pulmonic Valve The pulmonic valve is likely normal. Tricuspid Valve Normal tricuspid valve structure. There is trace tricuspid valve regurgitation. The right ventricular systolic pressure is normal. The right ventricular systolic pressure is 21 mmHg. Normal right atrial pressure. There is no evidence of pulmonary hypertension. Great Vessels The pulmonary artery was not well visualized. There is mild dilatation of the ascending aorta measuring 3.90 cm. Venous The inferior vena cava is normal in size and collapses greater than 50% with inspiration. Pericardium/Pleural There is no evidence of pericardial effusion. Prior Study Comparison No prior study available for comparison. Measurements 2D Linear Measurements IVSd: 0.84 0.6-0.9/0.6-1.0 cm LVIDd: 4.83 3.9-5.3/4.2-5.9 cm LVIDd Index: 2.40 2.4-3.2/2.2-3.1 cm/m2 LVIDs: 3.60 2.0-3.6 cm LVPWd: 0.87 0.7-1.1 cm LA Diam: 3.10 2.7-3.8/3.0-4.0 cm LAIDs Index: 1.54 1.5-2.3 cm/m2 LV Mass: 173.46 67-162/88-224 g LV Mass Index: 86.30 43-95/49-115 g/m2 LVOT Diam: 2.10 3.0+(-)1.3 cm 2D Systolic Function EF 4C: 59.10 >55% EF 2C: 59.80 >55% EF BiP: 59.20 >55% Mitral Valve MV Pk E: 0.64 MV PK A: 0.49 MV Decel Time: 271.00 E/A: 1.30 E'Lateral: 13.60 E'Medial: 7.04 E/E' Med: 9.10 E/E' Lat: 4.70 PHT: 80.00 MVA PHT: 2.75 Decel Stanley: 2.46 Aortic Valve AoV Pk Carlos: 1.12 AoV Mn Carlos: 0.81 AoV VTI: 0.25 AoV Pk Grad: 5.00 Aov Mn Grad: 3.00 MILAN Cont.VTI: 2.69 LVOT LVOT Pk Carlos: 0.93 LVOT Mn Carlos: 0.65 LVOT VTI: 0.20 LVOT Pk Grad: 3.00 LVOT Mn Grad: 2.00 LVOT Diam: 2.10 LVOT Area: 3.46 Diastolic Function MV Pk E: 0.64 MV Pk A: 0.49 E/A: 1.30 E'Medial: 7.04 E/E' Med: 9.10 E' Laterial: 13.60 E/E' Lat: 4.70 Right Ventricle TAPSE (mm): 23.40 TVS' Carlos: 11.90 Tricuspid Valve TR Pk Carlos: 1.79 TR Pk Grad: 13.00 RA Press: 8.00 RVSP: 21.00 Great Vessels Aorta Sinus of Valsalva: 3.40 2.0-3.5 cm Ao Asc: 3.90 2.1-3.4 cm Pulmonary Valve PV Pk Carlos: 0.91 Peak PV Grad: 3.00 Updated in Other Vendor System with Status of Final Carroll Toro MD electronically signed on 06/02/2024 3:15:35 PM with status of Final
--- NOTE | ~2024-06-03 | CT_ITS ---
EXAMINATION: CTA CHEST WITH CONTRAST CLINICAL INFORMATION: Q87.40 - Marfan syndrome, unspecified COMPARISON: None. TECHNIQUE: Multidetector volumetric CT imaging of the chest was obtained after the administration of 70 mL of Omnipaque 300 intravenous contrast without immediate adverse reactions. Reformatted MIP left oblique and coronal and axial reformatted images performed at CT scanner. No 3-D imaging. [This CT examination was performed using dose optimization techniques as appropriate, variously including the following: *Automated exposure control *Adjustment of mA and/or kV according to patient size (this includes techniques or standardized protocols for targeted exams where dose is matched to indication/reason for exam; i.e. extremities or head) *Use of iterative reconstruction technique] DLP; 114 mGy-cm. FINDINGS: LUNGS: The lungs are clear with no evidence of inflammation or nodules. MEDIASTINUM: The mediastinum is normal. Heart size is normal. No pericardial effusion. No mediastinal mass or significant lymphadenopathy. VASCULAR: Normal aorta. Ascending aorta measures 3.5 cm transverse. No aortic dissection. There are vascular calcifications. Normal appearance. Vessels. CORONARY ARTERIES: Volume of coronary calcification:None PLEURA: There is no pleural effusion. No pleural mass or thickening. AXILLA: No lymphadenopathy. UPPER ABDOMEN: Unremarkable OSSEOUS STRUCTURES: Unremarkable. CT/CT angio chest aorta IMPRESSION: 1. Normal aorta. No aortic dissection. 2. No acute abnormality of chest. Electronically signed by: Yeyo Olivera MD 07/05/2024 03:04 PM [facility]
[2024-06-03] MEDS: iohexoL 350 MG/ML 100 ML INFUS..BTL IV (08:39)
== END 2024-06-03 07:39 | disposition home or self-care (01) ==
LOC: HO.CT 07:38
PROVIDERS: PCP Nurse Practitioner Family; Visit Provider Internal Medicine
DX: Q87.40 Marfan syndrome, unspecified (principal); I49.3 Ventricular premature depolarization; I71.9 Aortic aneurysm of unspecified site, without rupture
CPT/HCPCS: 71275; 93306; Q9967

== ENCOUNTER 2024-07-05 12:45 | Outpatient (AMB) | payer OTHER, SELFPAY ==
[2024-07-05 12:46] VITALS: BP 96/64; PULSE 94; BMI 24.0
--- NOTE | 2024-07-05 12:46 | MHC.OFFVIS ---
Vital Signs 07/05/24 12:46 Height 6 ft Weight 177 lb 4.026 oz BMI 24.0 BP 96/64 Blood Pressure Location Lt brachial Position Sitting Pulse 94 Pulse Source Pulse Oximeter Intake Visit Reasons: s/p ct's / echo Colorectal Surgeon Required: No Accompanied by: Self / Same As Patient Allergies Seasonal Allergies Allergy (Intermediate, Verified 04/08/24 09:36) Itchy Eyes Penicillins Adverse Reaction (Severe, Verified 04/08/24 09:36) Anaphylaxis Medication List - Last Reconciled 07/05/24 by Parmjit Swartz MD albuterol sulfate 90 mcg/actuation 2 puffs inhalation Q4-6H PRN 30 days HPI Comments Details: Megan returns for follow-up. Recently seen regarding PVCs. Holter had shown frequent PVCs and hence she is referred here. Patient believes she might have had some arrhythmias many years ago but again extremely vague and never had a detailed workup. She is quite tall and marfanoid habitus. When I went into family history, she states that her brother has possible Marfan syndrome and is in his 40s at this time. However, she is not aware of what issues he actually has. Patient herself has never been identified with cardiac issues. She has also never been diagnosed as Marfan's. She is fairly active without any limitations. Some palpitations but nothing profound. No other cardiac symptoms. [facility] Medical History Hypermobility of joint Anxiety Hives HPV (human papilloma virus) infection Migraines Exercise-induced asthma Surgical History H/O oral surgery Family History Mother Hypothyroid Asthma Father Tonsil cancer Maternal Grandmother High blood pressure Family/Other Asthma Brother Marfan syndrome Sister No problems noted. Maternal Grandmother No problems noted. 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 Cognitive needs: No Hearing needs: No Vision needs: Yes Female Reproductive History Menstrual Age of Menarche: 14 Review of Systems Const Denies chills, Denies fatigue, Denies fever(s), Denies weight gain and Denies weight loss ENT Denies dizziness Card Denies chest pain, Denies leg edema, Denies lightheadedness, Denies palpitations, Denies dyspnea on exertion, Denies orthopnea and Denies other Resp Denies cough and Denies dyspnea on exertion GI Denies hematochezia and Denies change in stool character Musc Denies abnormal gait, Denies muscle weakness, Denies numbness, Denies radiating pain into limb and Denies tingling Neuro Denies abnormal gait, Denies dizziness, Denies numbness and Denies tingling Endo Denies fatigue and Denies palpitations Physical Exam Vital Signs: Last Vital Signs Pulse 94 07/05/24 12:46 BP 96/64 07/05/24 12:46 BMI result Body Mass Index 24.0 Const General: comfortable and no acute distress Orientation/consciousness: patient oriented x3 HEENT Other: Unremarkable Head: Yes normal to inspection Neck Neck: Yes normal visual inspection Chest Chest palpation & inspection: normal inspection of the chest Resp Auscultation: clear to auscultation bilaterally Cardio Palpation: normal PMI Heart sounds: S1 normal heart sound present, S2 normal heart sound present, no gallops, no murmurs and no rubs GI Palpation (GI): Soft to palpation Back/Spine/Pelvis Other: unremarkable Skin General skin exam: no rashes or lesions noted Neuro General: patient oriented x3 Extrem General: Yes normal to inspection Psych Mental Status: mental status grossly normal Assessment & Plan Assessment & Plan (1) PVC (premature ventricular contraction): Code(s): I49.3 - Ventricular premature depolarization Category: Medical (2) Marfanoid habitus: Code(s): R29.91 - Unspecified symptoms and signs involving the musculoskeletal system Category: Medical Plan Overall, marfanoid habitus with hypermobile joints, scoliosis, brother with ?Marfan. With regard to the PVCs, she has frequent PVCs on Holter with a burden of 33%. Unifocal. Pathophysiology discussed. Obtain cardiac MRI and we will refer her for EP evaluation/possible ablation. There is risk of PVC induced cardiomyopathy at this burden. Not suitable for any medications like beta-blockers or calcium channel blockers due to low blood pressure. Also we will hold off on antiarrhythmics at this time. With regard to aortic aneurysm assessment, she underwent CTA, but results are still pending. We will follow-up on that. Orders: Orders MR cardiac morph fnct w con Today I42.9 - Cardiomyopathy, unspecified, I49.3 - Ventricular premature depolarization Referrals Cardiac Electrophysiology Referral I49.3 - Ventricular premature depolarization Coding Level of Care Code Est Pt Level 4 (09254) Diagnoses PVC (premature ventricular contraction) I49.3 Marfanoid habitus R29.91
== END 2024-07-05 13:06 | disposition home or self-care (01) ==
PROVIDERS: PCP Nurse Practitioner Family; Visit Provider Internal Medicine
DX: I49.3 Ventricular premature depolarization (principal); R29.91 Unspecified symptoms and signs involving the musculoskeletal system
CPT/HCPCS: 99214

== ENCOUNTER → 2024-07-05 12:45 | Outpatient (BNVA) | payer OTHER, SELFPAY | PROVIDERS: PCP Nurse Practitioner Family; Visit Provider Internal Medicine | DX: I49.3 Ventricular premature depolarization (principal); I42.9 Cardiomyopathy, unspecified; R29.898 Other symptoms and signs involving the musculoskeletal system | CPT/HCPCS: 99212 ==

== ENCOUNTER 2024-10-20 08:11 | Outpatient (AMB) | payer OTHER, SELFPAY ==
[2024-10-20 08:14] VITALS: BP 90/60; PULSE 50; BMI 23.7
--- NOTE | 2024-10-20 08:14 | MHC.OFFVIS ---
Vital Signs 10/20/24 08:14 Height 6 ft Weight 174 lb 9.698 oz BMI 23.7 BP 90/60 Blood Pressure Location Rt brachial Pulse 50 Intake Visit Reasons: 3 mth f/up Guiel/ cardiac MRI Tuber Helper Required: No Accompanied by: Self / Same As Patient Allergies Seasonal Allergies Allergy (Intermediate, Verified 04/08/24 09:36) Itchy Eyes Penicillins Adverse Reaction (Severe, Verified 04/08/24 09:36) Anaphylaxis Medication List - Last Reconciled 10/20/24 by Parmjit Swartz MD albuterol sulfate 90 mcg/actuation 2 puffs inhalation Q4-6H PRN 30 days HPI Comments Details: Megan returns for follow-up. She was seen in consultation regarding PVCs. Holter had shown frequent PVCs. Patient believes she might have had some arrhythmias many years ago but again extremely vague and never had a detailed workup. She is quite tall and marfanoid habitus. When I went into family history, she states that her brother has possible Marfan syndrome and is in his 40s at this time. However, she is not aware of what issues he actually has. Patient herself has never been identified with cardiac issues. She has also never been diagnosed as Marfan's. She is fairly active without any limitations. Some palpitations but nothing profound. No other cardiac symptoms. She has seen EP regarding the frequent PVCs but did not undergo ablation. [facility] Medical History Hypermobility of joint Anxiety Hives HPV (human papilloma virus) infection Migraines Exercise-induced asthma Surgical History H/O oral surgery Family History Mother Hypothyroid Asthma Father Tonsil cancer Maternal Grandmother High blood pressure Family/Other Asthma Brother Marfan syndrome Sister No problems noted. Maternal Grandmother No problems noted. 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 Cognitive needs: No Hearing needs: No Vision needs: Yes Female Reproductive History Menstrual Age of Menarche: 14 Review of Systems Const Denies chills, Denies fatigue, Denies fever(s), Denies weight gain and Denies weight loss ENT Denies dizziness Card Denies chest pain, Denies leg edema, Denies lightheadedness, Denies palpitations, Denies dyspnea on exertion, Denies orthopnea and Denies other Resp Denies cough and Denies dyspnea on exertion GI Denies hematochezia and Denies change in stool character Musc Denies abnormal gait, Denies muscle weakness, Denies numbness, Denies radiating pain into limb and Denies tingling Neuro Denies abnormal gait, Denies dizziness, Denies numbness and Denies tingling Endo Denies fatigue and Denies palpitations Physical Exam Vital Signs: Last Vital Signs Pulse 50 10/20/24 08:14 BP 90/60 10/20/24 08:14 BMI result Body Mass Index 23.7 Const General: comfortable and no acute distress Orientation/consciousness: patient oriented x3 HEENT Other: Unremarkable Head: Yes normal to inspection Neck Neck: Yes normal visual inspection Chest Chest palpation & inspection: normal inspection of the chest Resp Auscultation: clear to auscultation bilaterally Cardio Palpation: normal PMI Heart sounds: S1 normal heart sound present, S2 normal heart sound present, no gallops, no murmurs and no rubs GI Palpation (GI): Soft to palpation Back/Spine/Pelvis Other: unremarkable Skin General skin exam: no rashes or lesions noted Neuro General: patient oriented x3 Extrem General: Yes normal to inspection Psych Mental Status: mental status grossly normal Assessment & Plan Assessment & Plan (1) PVC (premature ventricular contraction): Code(s): I49.3 - Ventricular premature depolarization Category: Medical (2) Marfanoid habitus: Code(s): R29.91 - Unspecified symptoms and signs involving the musculoskeletal system Category: Medical Plan Overall, marfanoid habitus with hypermobile joints, scoliosis, brother with ?Marfan. Echocardiogram with normal LVEF, 55-60%. No significant valvular findings. Ascending aortic size 3.9 cm. In the CTA, described to have normal aorta, no dissection. No coronary calcification. There is mention of vascular calcifications. PVC burden Holter was 33%. Unifocal. MRI was ordered but not performed as she stated that the insurance actually charge her for the CTA even though it was approved before. Hence there is a financial concern. Otherwise, she has been seen by EP but she would prefer to be just medically manage for now. Hence we will repeat her echocardiogram/Holter in about 4 months or so. If there is any evidence of LV dysfunction, then we will need to discuss further Regarding ablation. Not suitable for any beta-blockers or calcium channel blockers due to low blood pressure. No indication for antiarrhythmics either. Follow up in about 4 months' time. Orders: Orders CA echo transthoracic complete 4 Months I49.3 - Ventricular premature depolarization ECG 3 day holter monitor 4 Months I49.3 - Ventricular premature depolarization Coding Level of Care Code Est Pt Level 4 (24657) Complex EM visit Add On G2211 Diagnoses PVC (premature ventricular contraction) I49.3 Marfanoid habitus R29.91
== END 2024-10-20 08:32 | disposition home or self-care (01) ==
PROVIDERS: PCP Nurse Practitioner Family; Visit Provider Internal Medicine
DX: I49.3 Ventricular premature depolarization (principal); R29.91 Unspecified symptoms and signs involving the musculoskeletal system
CPT/HCPCS: 99214; G2211

== ENCOUNTER → 2024-10-20 08:11 | Outpatient (BNVA) | payer OTHER, SELFPAY | PROVIDERS: PCP Nurse Practitioner Family; Visit Provider Internal Medicine | DX: I49.3 Ventricular premature depolarization (principal); R29.91 Unspecified symptoms and signs involving the musculoskeletal system | CPT/HCPCS: 99212 ==

== ENCOUNTER → 2025-02-08 07:55 | Outpatient (REF) | payer OTHER, SELFPAY ==
--- NOTE | 2025-02-08 07:58 | HM_ITS ---
* Total monitoring time one day. * Underlying rhythm is sinus with an average rate of 83/Min. * Frequent ventricular ectopy with a burden of 22%. Rare couplets. Evidence of bigeminy/trigeminy. No significant runs. * No significant pauses or high-grade AV blocks. * No patient markers or diary events. MTDD
--- NOTE | 2025-02-08 07:58 | CA_ITS ---
Transthoracic Echocardiogram Patient (Last, First, Middle): Megan Neves, Gender: Female Date of : 1980 Age: 44 Procedure Date: 02/08/2025 Procedure Type: Transthoracic Echocardiogram Location: OP Height: 182.88 cm Weight: 78.93 kg BSA: 2.01 m2 Heart Rate: 76 bpm BP: 90 / 60 mmHg Manager Assembly: SB Referring MD: Parmjit Swartz MD Symptoms: I49.3 - Ventricular premature depolarization Study Quality: Adequate ECG Rhythm: Sinus with PVCs Conclusions: - The left ventricular systolic function is normal. The calculated ejection fraction is 56% by biplane method. - No obvious valvular pathology seen on this study. - There is mild dilatation of the ascending aorta measuring 3.70 cm. Findings Left Ventricle Normal left ventricular cavity size. There is normal left ventricular wall thickness. The left ventricular systolic function is normal. The calculated ejection fraction is 56% by biplane method. There is no evidence of regional wall motion abnormalities. Diastolic function is normal for age. Right Ventricle Normal right ventricular cavity size and systolic function. Atria Both atria are normal in size. Aortic Valve The aortic valve was not well visualized. There is no aortic valve stenosis. There is no aortic valve regurgitation. Mitral Valve The mitral valve appears normal. There is no mitral valve regurgitation. There is no mitral valve stenosis. Pulmonic Valve The pulmonic valve is likely normal. Tricuspid Valve Normal tricuspid valve structure. There is trace tricuspid valve regurgitation. There is no evidence of pulmonary hypertension. Great Vessels There is mild dilatation of the ascending aorta measuring 3.70 cm. Venous The inferior vena cava is normal in size and collapses greater than 50% with inspiration. Pericardium/Pleural There is no evidence of pericardial effusion. Prior Study Comparison No significant change compared to prior study dated: 06/01/2024. Recommendations, Care & Conclusions No obvious valvular pathology seen on this study. Measurements 2D Linear Measurements IVSd: 0.80 0.6-0.9/0.6-1.0 cm LVIDd: 5.11 3.9-5.3/4.2-5.9 cm LVIDd Index: 2.54 2.4-3.2/2.2-3.1 cm/m2 LVIDs: 3.28 2.0-3.6 cm LVPWd: 0.66 0.7-1.1 cm LA Diam: 3.10 2.7-3.8/3.0-4.0 cm LAIDs Index: 1.54 1.5-2.3 cm/m2 LV Mass: 155.49 67-162/88-224 g LV Mass Index: 77.36 43-95/49-115 g/m2 LVOT Diam: 2.30 3.0+(-)1.3 cm 2D Systolic Function EF 4C: 55.30 >55% EF 2C: 54.10 >55% EF BiP: 55.70 >55% Mitral Valve MV Pk E: 0.70 MV PK A: 0.51 MV Decel Time: 199.00 E/A: 1.40 E'Lateral: 11.40 E'Medial: 6.31 E/E' Med: 11.10 E/E' Lat: 6.10 PHT: 58.00 MVA PHT: 3.79 Decel Nye: 3.50 Aortic Valve AoV Pk Carlos: 1.09 AoV Pk Grad: 5.00 MILAN: 3.92 LVOT LVOT Pk Carlos: 1.03 LVOT Mn Carlos: 0.70 LVOT VTI: 0.20 LVOT Pk Grad: 4.00 LVOT Mn Grad: 2.00 LVOT Diam: 2.30 LVOT Area: 4.15 Diastolic Function MV Pk E: 0.70 MV Pk A: 0.51 E/A: 1.40 E'Medial: 6.31 E/E' Med: 11.10 E' Laterial: 11.40 E/E' Lat: 6.10 Right Ventricle TAPSE (mm): 22.60 TVS' Carlos: 10.90 Tricuspid Valve TR Pk Carlos: 1.92 TR Pk Grad: 15.00 RA Press: 3.00 RVSP: 18.00 Great Vessels Aorta Sinus of Valsalva: 3.30 2.0-3.5 cm Ao Asc: 3.70 2.1-3.4 cm Pulmonary Veins Pulm Vein S/D 1.20 Pulmonary Valve PV Pk Carlos: 0.93 Peak PV Grad: 3.00 Updated in Other Vendor System with Status of Final Parmjit Swartz MD electronically signed on 02/09/2025 12:40:32 PM with status of Final
== END ==
LOC: HO.CARD 07:55
PROVIDERS: PCP Nurse Practitioner Family; Visit Provider Internal Medicine
DX: I49.3 Ventricular premature depolarization (principal)
CPT/HCPCS: 93242; 93306

== ENCOUNTER → 2025-02-08 07:58 | Outpatient (BNV) | payer OTHER, SELFPAY | PROVIDERS: PCP Nurse Practitioner Family; Visit Provider Internal Medicine | DX: I77.810 Thoracic aortic ectasia (principal); R94.31 Abnormal electrocardiogram [ECG] [EKG] | CPT/HCPCS: 93306 ==

== ENCOUNTER 2025-03-17 08:08 | Outpatient (AMB) | payer OTHER, SELFPAY ==
[2025-03-17 08:26] VITALS: BP 110/60; PULSE 75; BMI 23.6
--- NOTE | 2025-03-17 08:26 | MHC.OFFVIS ---
Vital Signs 03/17/25 08:26 Height 6 ft Weight 174 lb 2.643 oz BMI 23.6 BP 110/60 Blood Pressure Location Lt brachial Position Sitting Pulse 75 Pulse Source Monitor Intake Visit Reasons: follow up s/p holter and echo Allergies Seasonal Allergies Allergy (Intermediate, Verified 04/08/24 09:36) Itchy Eyes Penicillins Adverse Reaction (Severe, Verified 04/08/24 09:36) Anaphylaxis Medication List - Last Reconciled 03/17/25 by Parmjit Swartz MD albuterol sulfate 90 mcg/actuation 2 puffs inhalation Q4-6H PRN 30 days HPI Comments Details: Megan returns for follow-up regarding PVCs. To recall, she is quite tall with marfanoid habitus. Brother has possible Marfan syndrome. Patient herself has never been identified with any major cardiac issues including Marfan's. Fairly active without any limitations. She would feel some palpitations off and on but not too much. She has had a comprehensive workup and also seen EP but mainly managed conservatively per her own preference. Overall, no new concerns. No dizziness or syncope. [facility] Medical History Hypermobility of joint Anxiety Hives HPV (human papilloma virus) infection Migraines Exercise-induced asthma Surgical History H/O oral surgery Family History Mother Hypothyroid Asthma Father Tonsil cancer Maternal Grandmother High blood pressure Family/Other Asthma Brother Marfan syndrome Sister No problems noted. Maternal Grandmother No problems noted. 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 Cognitive needs: No Hearing needs: No Vision needs: Yes Female Reproductive History Menstrual Age of Menarche: 14 Review of Systems Const Denies weakness ENT Denies dizziness Card Denies chest pain, Denies chest pain with activity, Denies syncope, Denies rapid heart rate, Denies pedal edema, Denies edema, Denies leg edema, Denies lightheadedness, Reports palpitations, Denies dyspnea, Denies dyspnea on exertion and Denies orthopnea Resp Denies cough, Denies dyspnea and Denies dyspnea on exertion GI Denies hematochezia and Denies change in stool character Musc Denies abnormal gait, Denies muscle cramps, Denies muscle weakness, Denies numbness, Denies radiating pain into limb and Denies tingling Neuro Denies abnormal gait, Denies dizziness, Denies syncope, Denies numbness, Denies tingling and Denies weakness Endo Reports palpitations Physical Exam Vital Signs: Last Vital Signs Pulse 75 03/17/25 08:26 BP 110/60 03/17/25 08:26 BMI result Body Mass Index 23.6 Assessment & Plan Assessment & Plan (1) PVC (premature ventricular contraction): Code(s): I49.3 - Ventricular premature depolarization Category: Medical (2) Marfanoid habitus: Code(s): R29.91 - Unspecified symptoms and signs involving the musculoskeletal system Category: Medical Plan Overall, marfanoid habitus with hypermobile joints, scoliosis, brother with ?Marfan. Echocardiogram with normal LVEF, 55-60%. No significant valvular findings. Ascending aortic size 3.9 cm. Repeat study with ascending aortic size 3.7 cm. In the CTA, described to have normal aorta, no dissection. No coronary calcification. There is mention of vascular calcifications. PVC burden Holter was 33%. Unifocal. In the repeat Holter, PVC burden 22%. MRI not completed because of financial concerns. Overall, relatively asymptomatic PVCs but with a high burden. Assess by EP but did not pursue ablation. Manage conservatively. Not suitable for any medications like beta-blockers or calcium channel blockers because of low blood pressure. No definitive indication for antiarrhythmics either. We can do an exercise stress test to see if there is any increase with activity. We will also assess for any VT. If that is the case, then may need an ablation. If not, we will need to follow her for any LV dysfunction in the future. Discussed about this plan and she agrees. Discussion Notes I discussed with the patient the presence of premature ventricular contractions (PVCs) and the potential impact on heart function if they become excessive. We reviewed the options of ablation versus observation, and the patient opted for monitoring her condition. I recommended a stress test to evaluate the effect of exercise on her PVCs, explaining that exercise might suppress or exacerbate the condition. We agreed on a follow-up in six months to reassess her condition and management plan. Patient was informed and verbally consented to the use of an ambient scribe for clinic note documentation during this visit. Orders: Orders CA stress test Today I49.3 - Ventricular premature depolarization Patient Instructions: - Monitor your symptoms and report any increase in frequency or severity of PVCs. - Continue with your current exercise routine, but be mindful of any symptoms during or after exercise. - Attend the scheduled stress test to evaluate the impact of exercise on your PVCs. - Follow up in six months for reassessment. Coding Level of Care Code Est Pt Level 4 (38506) Complex EM visit Add On G2211 Diagnoses PVC (premature ventricular contraction) I49.3 Marfanoid habitus R29.91
== END 2025-03-17 08:46 | disposition home or self-care (01) ==
LOC: HO.HCS 08:08
PROVIDERS: PCP Nurse Practitioner Family; Visit Provider Internal Medicine
DX: I49.3 Ventricular premature depolarization (principal); R29.91 Unspecified symptoms and signs involving the musculoskeletal system
CPT/HCPCS: 93010; 99214

== ENCOUNTER → 2025-03-17 08:08 | Outpatient (BNVA) | payer OTHER, SELFPAY | PROVIDERS: PCP Nurse Practitioner Family; Visit Provider Internal Medicine | DX: I49.3 Ventricular premature depolarization (principal); Q87.43 Marfan syndrome with skeletal manifestation; M35.7 Hypermobility syndrome | CPT/HCPCS: 93005; 99212 ==

== ENCOUNTER 2025-03-25 11:54 | Outpatient (AMB) | payer OTHER, SELFPAY ==
--- NOTE | 2025-03-25 11:57 | A.OFFPC_ITS ---
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: No Allergies Seasonal Allergies Allergy (Intermediate, Verified 03/25/25 12:11) Itchy Eyes Penicillins Adverse Reaction (Severe, Verified 03/25/25 12:11) Anaphylaxis Medication List - Last Reconciled 03/25/25 by Ivette Land, [facility] albuterol sulfate 90 mcg/actuation 2 puffs inhalation Q4-6H PRN 30 days fluticasone propionate 50 mcg/actuation 2 sprays intranasal BID Tobacco use date assessed: 03/25/25 Dental Screening Dental Screen Date: 03/25/25 Did you have a dental visit in the last 12 months?: Yes Did you have a dental problem in the last 6 months where you did not have access to dental care?: No Was dental information given to patient?: Patient has dentist HPI HPI Comments History of Present Illness Details Becs 44-year-old female with perimenopause, e xercised induced asthma , seasonal allergies, PVCs, migraine headaches, generalized anxiety disorder, HPV s/p wisdom teeth extraction 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 brain aneurysm, Alzheimer MGF: age 95, OA PGM: age 92, anxious PGF: unknown Denies significant family hx in first degree relatives. Siblings - older full brother alive and well, younger half brother (paternal) alive and well Children - none Health Maintenance: Mammo 09/2023 reports [facility]NL at [facility]; she will work on scheduling [place] [facility] [place] Specialists: women's health [place] [facility] [place] EP Dr Espinoza History of Present Illness - The patient is a 44-year-old female pr esenting with a request for a complete physical examination. - Ongoing perimenopause. - Asthma induced by exercise, managed wi th albuterol. - Seasonal allergies present. - PVCs discussed, conservative versus pr ocedural options noted. - HX of Migraines - Anxiety disorder managed with lifestyl e modifications. - HPV with routine screenings updated. A dvised to get vaccine at local pharmacy. - Deviated septum concerns noted,snoring at HS, would like to see ENT -STD screening planned polyamorous Review of Systems - Respiratory: Reports exercise-induced asthma managed with albuterol - Neurological: Reports migraine headach es - Psychological: Reports generalized anx iety disorder, managed without medications - Cardiac: Reports PVCs; stress test rec ommendation discussed - Sleep: Partner reports breathing issue s during sleep, suspected deviated septum Physical Exam General: Well developed, well nourished, in no acute distress. Appears stated age. Marfanoid body habitus Head: Normocephalic, atraumatic. Eyes: Pupils are equal, round and reactive to light and accommodation. Conjunctivae are clear. Vision grossly normal. Ears: TMs clear AU, EACS WNL Nose: Patent, without discharge. Nasal septum deviation not appreciated Neck: Supple, no adenopathy. mild thyromegaly w/o tenderness or trachea deviation Breast: Edu on SBE Lungs: Clear to auscultation bilaterally. No rales, rhonchi or wheeze noted. Good air flow in all roach. Heart: Regular rate and rhythm, frequent PVC noted. No murmurs, click, rubs or gallops are noted. Abdomen: Bowel sounds present in all quadrants. The abdomen is soft, nontender, with no masses or organomegaly noted. No hernias are noted. : Deferred. Reviewed MELVIN & recommendations for routine PRODUCTION COOK Pulses: Peripheral pulses are equal and palpable bilaterally. Extremities: No clubbing, cyanosis nor edema is noted. Neurologic: Gait and station normal. Cranial Nerves 2-12 intact. Motor strength grossly symmetrical and intact. No sensory loss. Balance normal. Skin: No rashes, ulcers, or lesions noted. Turgor is good. Skin color is good. Hair and nails are without abnormalities. Psych: Normal eye contact, affect and mood appropriate, and normal interactions. Patient is alert and appropriate to context. Results Pending Discussion Notes Patient was given time to ask questions. All questions were answered to their satisfaction. Assessment and Plan 1. Exercise-induced asthma - Continue albuterol use as needed. 2. PVCs - Schedule and complete stress test. - Monitor under cardiology care. 3. Deviated septum - Use Flonase as directed. - Obtain nasal x-ray and follow-up with ENT. 4. Generalized anxiety disorder - Adequate control noted, maintain curre nt management. 5. Migraine headaches - Continue current management strategies . 6. Health maintenance - Ensure screenings and vaccinations are up to date as discussed. Labs today; HPV vaccine at pharmacy RTO 1 YEAR CPE, SOONER PRN Patient Instructions - Use albuterol as needed for asthma. - Schedule an ENT appointment and get a nasal x-ray as directed. - Use Flonase nasal spray as instructed. - Complete the stress test. - Follow up on all health screenings and vaccinations. - Continue with anxiety and migraine man agement as discussed. Consent Patient was informed and verbally consented to the use of an ambient scribe for clinic note documentation during this visit. An additional 20 minutes was spent addressing the problem(s) noted at todays visit. This includes time spent before the visit reviewing the chart, time spent during the visit, and time spent after the visit on documentation reviewing laboratory results, diagnostic imaging, medications, performing a medically necessary evaluation, counseling on diagnoses, care coordination, ordering appropriate tests, ordering appropriate medications, review of tests performed by other providers, reporting test results with the patient, communication with other healthcare providers. [facility] Medical History Hypermobility of joint Anxiety Hives HPV (human papilloma virus) infection Migraines Exercise-induced asthma Surgical History H/O oral surgery Family History Mother Hypothyroid Asthma Father Tonsil cancer Maternal Grandmother High blood pressure Family/Other Asthma Brother Marfan syndrome Sister No problems noted. Maternal Grandmother No problems noted. 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 1. Little interest or pleasure in doing things: not at all 2. Feeling down, depressed, or hopeless: not at all 3. Trouble falling or staying asleep, or sleeping too much: several days 4. Feeling tired or having little energy: several days 5. Poor appetite or overeating: not at all 6. Feeling bad about yourself - or that you are a failure or have let yourself or your family down: not at all 7. Trouble concentrating on things, such as reading the newspaper or watching t elevision: not at all 8. Moving or speaking so slowly that other people could have noticed. Or the opposite - being so fidgety or restless that you have been moving around a lot more than usual: not at all 9. Thoughts that you would be better off or of hurting yourself in some way: not at all Total score: 2 Depression Screening Interpretation: Negative Depression Screening Done: Yes 37620 - PHQ-9 Billing: Yes Source: Developed by Drs. Salazar Davis, Saritha Lynch, Jamin Mendoza and colleagues, with an educational sherlyn from [employer]. Thrive Questionnaire Date Thrive assessed: 03/18/25 I am a: Patient What is your living situation today?: I have a steady place to live Within the past 12 months, did the food you bought not last and you didn't have the money to get more?: Never true Within the past 12 months, did you worry whether your food would run out before you got money to buy more?: Never true Do you have trouble paying for medicines?: No Do you have trouble getting transportation to medical appointments?: No Do you have trouble paying your heating and electricity bill?: No Do you have trouble taking care of your child, family member or friend?: No Do you have trouble with day-to-day activities such as bathing, preparing meals, shopping, managing finances, etc.?: No Are you currently unemployed and looking for a job?: No Are you interested in more education?: No Please select the resources that you would like help with: None Currently or been in a relationship where the following occur: No concerns reported THRIVE Score: 0 AUDIT C Alcohol Use Questionnaire (AUDIT-C) 1. How often do you have a drink containing alcohol?: 2-4 times a month 2. How many drinks containing alcohol do you have on a typical day when you are drinking?: 1 or 2 3. How often do you have six or more drinks on one occasion?: Never Total Score: 2 Score Reviewed/Action Taken: Yes ANGELINE-7 AMB Questionnaire ANGELINE-7 Date ANGELINE - 7 assessed: 03/25/25 Feeling nervous, anxious, or on edge: 1 = Several days Not being able to stop or control worryin = Not at all Worrying too much about different things: 1 = Several days Trouble relaxin = More than half the days Being so restless that it is hard to sit still: 0 = Not at all Becoming easily annoyed or irritable: 0 = Not at all Feeling afraid as if something awful might happen: 0 = Not at all Total ANGELINE-7 score (0-4 normal; 5-9 mild; 10-14 moderate; 15-21 severe): 4 Source: Developed by Drs. Salazar Davis, Saritha Lynch, Jamin Mendoza and colleagues, with an educational sherlyn from [employer]. ANGELINE-7 Assessment Billing ANGELINE-7 Assessment Tool: ANGELINE-7 Assessment 59458 Physical exam (Primary Care) Vital Signs: Last Vital Signs Temp 98.4 F 03/25/25 12:00 Pulse 86 03/25/25 12:00 Resp 14 03/25/25 12:00 BP 108/62 03/25/25 12:00 Pulse Ox 98 03/25/25 12:00 Oxygen Delivery Method Room Air 03/25/25 12:00 BMI result Body Mass Index 24.0 Tobacco/Smoking Status: Tobacco use Status Tobacco use date assessed 03/25/25 03/25/25 12:04 Patient Tobacco Use Status Former Tobacco user 03/25/25 12:04 e-Cigarette/Vaping Use Never Used 03/25/25 12:04 PHQ-9: PHQ-9 Score PHQ-9: Total score 2 03/25/25 12:16 Depression Screening Interpretation: Negative Thrive Assessment: Date of Thrive Assessment Date Thrive assessed 03/18/25 03/25/25 11:58 Currently or been in a relationship where the following occur: No concerns reported Coding Level of Care Code Est Pt Level 3 (58808) Est Pt Prev Care 40-64y(11243) Diagnoses Encounter for general adult medical examination without abnormal findings Z00.00 Generalized anxiety disorder F41.1 Frequent PVCs I49.3 HPV in female B97.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 Z86.19 Marfanoid habitus R29.91 Mild intermittent asthma without complication J45.20 Asthma complication type: uncomplicated Deviated septum J34.2 Additional Codes ANGELINE-7 Assessment Billing - ANGELINE-7 Assessment Tool: ANGELINE-7 Assessment 84837 ([id number]) PHQ-9 - 29661 - PHQ-9 Billing: Yes ([id number]) Assessment & Plan Assessment & Plan (1) Encounter for general adult medical examination without abnormal findings: Onset Date: ~03/25/25 Code(s): Z00.00 - Encounter for general adult medical examination without abnormal findings Category: Medical (2) Generalized anxiety disorder: Comment: Does not feel like she needs medications. 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 Code(s): F41.1 - Generalized anxiety disorder Category: Medical (3) Frequent PVCs: Code(s): I49.3 - Ventricular premature depolarization Category: Medical (4) HPV in female: Comment: Refer to track template maker; 04/08/2024 patient states she has a history of positive HSV antibodies 1 &2, no history than outbreak. States she has never had an abnormal Pap, Pap with Co testing done today. Code(s): B97.7 - Papillomavirus as the cause of diseases classified elsewhere Category: Medical (5) History of JENNI positive for HSV: Comment: pt states she tested pos for hsv 1 & 2 antibodies 2 yrs ago, has never ever had an outbreak. Code(s): Z86.19 - Personal history of other infectious and parasitic diseases Category: Medical (6) Marfanoid habitus: Code(s): R29.91 - Unspecified symptoms and signs involving the musculoskeletal system Category: Medical (7) Mild intermittent asthma: Comment: P.r.n. use of Tamara only. Code(s): J45.20 - Mild intermittent asthma, uncomplicated Category: Medical Qualifiers: Asthma complication type: uncomplicated Qualified Code(s): J45.20 - Mild intermittent asthma, uncomplicated (8) Deviated septum: Comment: flonase xray refer to ent Code(s): J34.2 - Deviated nasal septum Category: Medical Plan , Orders: Orders Complete Blood Count no Diff Today Z00.00 - Encounter for general adult medical examination without abnormal findings, Z11.3 - Encounter for screening for infections with a predominantly sexual mode of transmission Comprehensive Met. Panel Today Z00.00 - Encounter for general adult medical examination without abnormal findings, Z11.3 - Encounter for screening for infections with a predominantly sexual mode of transmission TSH reflex Free T4 Today Z00.00 - Encounter for general adult medical examination without abnormal findings, Z11.3 - Encounter for screening for infections with a predominantly sexual mode of transmission HIV Ab/Ag Today Z00.00 - Encounter for general adult medical examination without abnormal findings, Z11.3 - Encounter for screening for infections with a predominantly sexual mode of transmission XR nasal bones min 3V Today J34.2 - Deviated nasal septum Hemoglobin A1c Today Z00.00 - Encounter for general adult medical examination without abnormal findings, Z11.3 - Encounter for screening for infections with a predominantly sexual mode of transmission Lipid Panel Today Z00.00 - Encounter for general adult medical examination without abnormal findings, Z11.3 - Encounter for screening for infections with a predominantly sexual mode of transmission Microalbumin, Random (w Creat) Today Z00.00 - Encounter for general adult medical examination without abnormal findings, Z11.3 - Encounter for screening for infections with a predominantly sexual mode of transmission UA CC w/rflx Micro + Cult Today R30.0 - Dysuria, Z00.00 - Encounter for general adult medical examination without abnormal findings, Z11.3 - Encounter for screening for infections with a predominantly sexual mode of transmission Vitamin B12 and Folate Today Z00.00 - Encounter for general adult medical examination without abnormal findings, Z11.3 - Encounter for screening for infections with a predominantly sexual mode of transmission Vitamin D 25-OH Total Today Z00.00 - Encounter for general adult medical examination without abnormal findings, Z11.3 - Encounter for screening for infections with a predominantly sexual mode of transmission Syphilis Screen Today Z00.00 - Encounter for general adult medical examination without abnormal findings, Z11.3 - Encounter for screening for infections with a predominantly sexual mode of transmission CT NG by PCR Urine Today Z00.00 - Encounter for general adult medical exa mination without abnormal findings, Z11.3 - Encounter for screening for infections with a predominantly sexual mode of transmission Referrals Ear/Nose/Throat Referral J34.2 - Deviated nasal septum Patient Instructions: Health screenings for women You should visit your health care provider from time to time, even if you are healthy. The purpose of these visits is to: Screen for medical issues Assess your risk for future medical problems Encourage a healthy lifestyle Update vaccinations and other preventive care services Help you get to know your provider in case of an illness Information Even if you feel fine, you should still see your provider for regular checkups. These visits can help you avoid problems in the future. For example, the only way to find out if you have high blood pressure is to have it checked regularly. High blood sugar and high cholesterol levels also may not have any symptoms in the early stages. A simple blood test can check for these conditions. There are specific times when you should see your provider or receive specific health screenings. The [place] Preventive Services Task Force publishes a list of recommended screenings. Below are screening guidelines for women ages 18 to 39. BLOOD PRESSURE SCREENING Your blood pressure should be checked at least once every 3 to 5 years if: Your blood pressure is in the normal range (top number less than 120 mm Hg and bottom number less than 80 mm Hg) You don't have risk factors for high blood pressure Ask your provider if you need your blood pressure checked more often if: The top number is 120 to 129 mm Hg or the bottom number is 70 to 79 mm Hg You have diabetes, heart disease, kidney problems, are overweight, or have certain other health conditions You have a first-degree relative with high blood pressure You are Black You had high blood pressure during a If the top number is 130 mm Hg or greater or the bottom number is 80 mm Hg or greater, this is considered stage 1 hypertension. Schedule an appointment with your provider to learn how you can reduce your blood pressure. Watch for blood pressure screenings in your area. Ask your provider if you can stop in to have your blood pressure checked. BREAST CANCER SCREENING Experts do not agree about the benefits of breast self-exams in finding breast cancer or saving lives. Talk to your provider about what is best for you. A screening mammogram is not recommended for most women under age 40. Your provider may discuss and recommend mammograms, MRI scans, or ultrasounds if you have an increased risk for breast cancer, such as: A mother or sister who had breast cancer at a young age (most often starting screening earlier than the age the close relative was diagnosed) You carry a high-risk genetic marker CERVICAL CANCER SCREENING Cervical cancer screening should start at age 21 years unless your provider advises otherwise. After the first test: Women ages 21 through 29 should have a Pap test every 3 years. Exoprts do not agree on whether HPV testing is recommended for this age group. Women ages 30 through 65 should be screened with either a Pap test every 3 years or the HPV test every 5 years or both tests every 5 years (called cotesting ). Women who have been treated for precancer (cervical dysplasia) should continue to have Pap tests for 20 years after treatment or until age 65, whichever is longer. If you have had your uterus and cervix removed (total hysterectomy), and you have not been diagnosed with cervical cancer or precancer (high grade cervical neoplasia), you do not need cervical cancer screening. CHOLESTEROL SCREENING Cholesterol screening should begin at: Age 45 for women with no known risk factors for coronary heart disease Age 20 for women with known risk factors for coronary heart disease Repeat cholesterol screening should take place: Every 5 years for women with normal cholesterol levels More often if changes occur in lifestyle (including weight gain and diet) More often if you have diabetes, heart disease, kidney problems, or certain other conditions DIABETES SCREENING You should be screened for diabetes starting at age 35 and then repeated every 3 years if you have no risk factors for diabetes. Screening may need to start earlier and be repeated more often if you have other risk factors for diabetes, such as: You have a first degree relative with diabetes. You are overweight or have obesity. You have high blood pressure, prediabetes, or a history of heart disease. Screening for diabetes should be done if you are planning to become and you are overweight and have other risk factors such as high blood pressure. DENTAL EXAM Go to the dentist once or twice every year for an exam and cleaning. Your dentist will evaluate if you need more frequent visits. EYE EXAM Have an eye exam every 5 to 10 years before age 40. If you have vision problems, have an eye exam every 2 years or more often if recommended by your provider. You should have an eye exam that includes an examination of your retina (back of your eye) at least every year if you have diabetes. IMMUNIZATIONS Commonly needed vaccines include: Flu shot: get one every year. COVID-19 vaccine: ask your provider what is best for you. Tetanus-diphtheria and acellular pertussis (Tdap) vaccine: have one at or after age 19 as one of your tetanus-diphtheria vaccines if you did not receive it as an adolescent. Tetanus-diphtheria: have a booster (or Tdap) every 10 years. Varicella vaccine: receive 2 doses if you never had chickenpox or the varicella vaccine. Hepatitis B vaccine: receive 2, 3, or 4 doses, depending on your exact circumstances. Measles, mumps, and rubella (MMR) vaccine: receive 1 to 2 doses if you are not already immune to MMR. Your provider can tell you if you are immune. Ask your provider about the human papillomavirus (HPV) vaccine if: You have not received the HPV vaccine in the past You have not completed the full vaccine series (you should catch up on this shot) Ask your provider if you should receive other immunizations if you have certain health problems that increase your risk for some diseases such as pneumonia. INFECTIOUS DISEASE SCREENING Women who are sexually active should be screened for chlamydia and gonorrhea up until age 25. Women 25 years and older should be screened for chlamydia and gonorrhea if at high risk. Screening for hepatitis C: All adults ages 18 to 79 should get a one-time test for hepatitis C. people should be screened at every . Screening for human immunodeficiency virus (HIV): All people ages 15 to 65 should get a one-time test for HIV. Depending on your lifestyle and medical history, you may also need to be screened for infections such as syphilis and HIV, as well as other infections. PHYSICAL EXAM All adults should visit their provider from time to time, even if they are healthy. The purpose of these visits is to: Screen for disease Assess your risk of future medical problems Encourage a healthy lifestyle Update your vaccinations and other preventive care services Maintain a relationship with a provider in case of an illness Your height, weight, and BMI should be checked at every exam. During your exam, your provider may ask you about: Depression and anxiety Diet and exercise Alcohol and tobacco use Safety issues, such as using seat belts, smoke detectors, and intimate partner violence Your medicines and risk for interactions SKIN SELF-EXAM Your provider may check your skin for signs of skin cancer, especially if you're at high risk, such as if you: Have had skin cancer before Have close relatives with skin cancer Have a weakened immune system OTHER SCREENING Talk with your provider about colon cancer screening if you have a strong family history of colon cancer or polyps, or if you have had inflammatory bowel disease or polyps yourself. Routine bone density screening of women under 40 is not recommended.
[2025-03-25 12:00] VITALS: BP 108/62; PULSE 86; RESP 14; TEMP 36.9; O2SAT 98; BMI 24.0
== END 2025-03-25 12:34 | disposition home or self-care (01) ==
LOC: HO.HMCFM 11:55
PROVIDERS: PCP Nurse Practitioner Family; Visit Provider Nurse Practitioner Family
DX: Z00.00 Encounter for general adult medical examination without abnormal findings (principal); I49.3 Ventricular premature depolarization; F41.1 Generalized anxiety disorder; J45.20 Mild intermittent asthma, uncomplicated; B97.7 Papillomavirus as the cause of diseases classified elsewhere; Z86.19 Personal history of other infectious and parasitic diseases; R29.91 Unspecified symptoms and signs involving the musculoskeletal system; J34.2 Deviated nasal septum

== ENCOUNTER → 2025-03-25 11:54 | Outpatient (BNVA) | payer OTHER, SELFPAY | PROVIDERS: PCP Nurse Practitioner Family; Visit Provider Nurse Practitioner Family | DX: Z00.00 Encounter for general adult medical examination without abnormal findings (principal); F41.1 Generalized anxiety disorder; I49.3 Ventricular premature depolarization; B97.7 Papillomavirus as the cause of diseases classified elsewhere; R29.91 Unspecified symptoms and signs involving the musculoskeletal system; J45.20 Mild intermittent asthma, uncomplicated; J34.2 Deviated nasal septum; Z86.19 Personal history of other infectious and parasitic diseases; Z13.31 Encounter for screening for depression; Z13.39 Encounter for screening examination for other mental health and behavioral disorders | CPT/HCPCS: 96127; 99212; 99396 ==

== ENCOUNTER 2025-03-25 12:39 | Outpatient (REF) | payer OTHER, SELFPAY ==
[2025-03-25 15:33] LABS: Appearance Urine Clear; Glucose Urine UA Negative (Negative); PH 6.5 (5.0-9.0); Specific Gravity - Urine <= 1.005 (1.005-1.025)
[2025-03-25 15:51] LABS: Hematocrit 39.2 % (37.0-47.0); Hemoglobin 13.0 g/dl (12.0-16.0); Mean Corpuscular HGB Conc 33.2 g/dl (31.0-35.0); Mean Corpuscular Hemoglobin 28.3 pg (27.0-33.0); Mean Corpuscular Volume 85.4 fL (80.0-98.0); NRBC Abs Auto 0.000 X10*3/uL (0.0-0.012); NRBC Pct Auto 0.0 /100WBC (0.0-0.2); Platelet Count 260 X10*3/uL (160-400); Red Blood Count 4.59 X10*6/uL (4.20-5.50); White Blood Count 5.5 X10*3/uL (4.8-10.8)
[2025-03-25 16:11] LABS: Hemoglobin A1C 110.1201 umol/L; Total Hemoglobin (HGBA1C) 3466.9800 umol/L
[2025-03-25 16:25] LABS: Alanine Aminotransferase 20 U/L (0-31); Albumin Level 4.8 g/dL (3.5-5.0); Alkaline Phosphatase 39 U/L (39-117); Anion Gap 10 (12-20); Aspartate Amino Transferase 21 U/L (5-31); Blood Urea Nitrogen 10 mg/dL (9-16); Calcium 9.1 mg/dL (8.4-10.2); Carbon Dioxide 24 mmol/L (22-29); Chloride 109 mmol/L (96-108); Cholesterol 185 mg/dL (<200); Estimated Glomerular Filt Rate > 60; HDL Cholesterol 56 mg/dL (>40); Potassium 3.9 mmol/L (3.3-5.1); Sodium 139 mmol/L (135-145); Total Protein 7.4 g/dL (6.5-8.0); Triglycerides 78 mg/dL (<150)
[2025-03-25 16:51] LABS: Folate 9.1 ng/mL (> or = 4.0); Vitamin B12 289 pg/mL (200-900)
[2025-03-25 17:54] LABS: CT PCR Urine NOT DETECTED (Not Detect.); NG PCR Urine NOT DETECTED (Not Detect.)
[2025-03-26 03:17] LABS: Syphilis Screen Nonreactive (Nonreactive)
[2025-03-26 03:32] LABS: HIV Num 1 0.06 S/CO (0.00-0.99)
== END 2025-03-25 12:40 | disposition home or self-care (01) ==
LOC: HO.WFDLDS 12:39
PROVIDERS: Visit Provider Nurse Practitioner Family
DX: Z00.00 Encounter for general adult medical examination without abnormal findings (principal); Z11.3 Encounter for screening for infections with a predominantly sexual mode of transmission; Z11.8 Encounter for screening for other infectious and parasitic diseases; Z11.4 Encounter for screening for human immunodeficiency virus [HIV]; R30.0 Dysuria
CPT/HCPCS: 36415; 80053; 80061; 81003; 82043; 82306; 82570; 82607; 82746; 83036; 84443; 85027; 86780; 87389; 87491; 87591

== ENCOUNTER 2025-06-24 10:55 | Outpatient (REF) | payer OTHER, SELFPAY ==
--- NOTE | ~2025-06-24 | XR_ITS ---
EXAMINATION: XR NASAL BONES CLINICAL INFORMATION: J34.2 - Deviated nasal septum COMPARISON: None available. TECHNIQUE: 3 views of the nasal bones were obtained. FINDINGS: There are no fractures or dislocations. No bone, joint or soft tissue abnormality is demonstrated. XR/XR nasal bones min 3V IMPRESSION: Unremarkable nasal bone examination. Electronically signed by: Jaime Lorenz MD 06/24/2025 11:33 AM EDT
== END 2025-06-24 10:56 | disposition home or self-care (01) ==
LOC: HO.XRAY 10:55
PROVIDERS: PCP Nurse Practitioner Family; Visit Provider Nurse Practitioner Family
DX: J34.2 Deviated nasal septum (principal)
CPT/HCPCS: 70160

== ENCOUNTER → 2025-06-24 10:58 | Outpatient (BNV) | payer OTHER, SELFPAY | PROVIDERS: PCP Nurse Practitioner Family; Visit Provider Radiology Diagnostic Radiology | DX: J34.2 Deviated nasal septum (principal) | CPT/HCPCS: 70160 ==